=== PATIENT | female | born 1970 | race Caucasian/White ===

== ENCOUNTER 2022-10-23 15:40 | Outpatient (CLI) | payer SELFPAY | END 2022-10-23 15:41 | disposition home or self-care (01) | PROVIDERS: PCP Family Medicine; Referring Provider Family Medicine; Visit Provider Family Medicine | DX: E55.9 Vitamin D deficiency, unspecified (principal); Z13.6 Encounter for screening for cardiovascular disorders | CPT/HCPCS: 80053; 80061; 82306 ==

== ENCOUNTER 2024-04-20 09:20 | Outpatient (CLI) | payer BC, SELFPAY ==
--- OUTSIDE RECORDS SUMMARY | 2024-04-24 05:59 | XMS_ITS | Clinical Summary ---
Author Organization [facility] Address [place], [place] [address] Care Team Providers Care Chemical Dependency Therapist Name Role Phone Pcp, No Primary Care Provider Unavailabl e Allergies No known active allergies Medications Medication Sig Dispensed Refills Start Date End Date Status ibuprofen (ADVIL; MOTRIN) 200 mg tablet Take 1 tablet by mouth 4 times daily if needed. 0 03/11/2019 Active docusate (COLACE) 100 mg capsuleIndications: Chronic constipation Take 1 capsule by mouth at bedtime. 180 capsule 1 03/11/2019 Active baclofen (LIORESAL) 10 mg tabletIndications:M uscle spasm Take 1-2 tablets before bedtime as needed 56 tablet 2 05/11/2019 Active gabapentin (NEURONTIN) 300 mg capsuleIndications: Lumbar radiculopathy Take 1 capsule by mouth at bedtime. 90 capsule 1 05/23/2019 Active acetaminophen (TYLENOL EXTRA STRGTH) 500 mg tablet Take 1 tablet by mouth every 6 hours if needed. Max acetaminophen dose: 4000mg in 24 hrs. 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 Sensorineural hearing loss, bilateral 01/01/2017 Vitamin D deficiency 05/03/2010 Subjective tinnitus 01/25/2010 Immunizations Name Administration Dates Next Due Hepatitis B (Adult) 10/07/2001,04/08/2001,2000 Influenza, IIV3 (Age >=3 years) 08/31/2013,08/02,04/25/2011,05/01/2010 Influenza, IIV4 06/02/2014 MMR 04/08/2001,03/04/2001 Td (Age >=7 Years) 10/07/2001,04/08/2001, 001 Tdap 06/07/2009 Family History Medical History Relation Name Comments Unknown Father Unknown Maternal Grandfather Unknown Maternal Grandmother Good Health Mother Unknown Paternal Grandfather Unknown Paternal Grandmother Relation Name Status Comments Father Maternal Grandfather Maternal Grandmother Mother Paternal Grandfather Paternal Grandmother Social History Tobacco Use Types Packs/Day Years Used Date Smoking Tobacco: Never Smokeless Tobacco: Never Tobacco Cessation:Counseling Given: Yes Alcohol Use Standard Drinks/Week Comments No 0 (1 standard drink = 0.6 oz pur e alcohol) PHQ-2 Answer Date Recorded PHQ-2 Score 0 09/27/2018 Social Connections Answer Date Recorded Frequency of Communication with Friends and Fami ly Not on file 07/27/2021 Financial Resource Strain Answer Date R ecorded Difficulty of Paying Living Expenses Not on file 07/27/2021 Difficulty of Paying Living Expenses Not on file 07/27/2021 Sex and Gender Information Value Date Recorded Sex Assigned at Not on file Gender Identity Not on file Sexual Orientation Not on file Obstetrics History Para Term AB IAB SAB Ectopic Multiple Livin g Live Births 2 2 Date Outcome GA Total Labor Labor/2nd/3rd Weight Sex Type Anes PTL [place] A1 A5 Name Clin Last Filed Vital Signs Vital Sign Reading Time Taken Comments Blood Pressure 110/72 08/23/2019 4:57 PM WARPER CREELER Pulse 79 08/23/2019 4:57 PM WARPER CREELER Temperature 36.9 ??C (98.5 ??F) 08/23/2019 4:57 PM CS T Respiratory Rate 14 06/20/2019 1:19 PM WARPER CREELER Oxygen Saturation 98% 08/23/2019 4:57 PM WARPER CREELER Inhaled Oxygen Concentration - - Weight 83.6 kg (184 lb 3.2 oz) 08/23/2019 4:57 P M WARPER CREELER Height 149.9 cm (4' 11) 08/23/2019 4:57 PM WARPER CREELER Body Mass Index 37.2 08/23/2019 4:57 PM WARPER CREELER Plan of Treatment Health Maintenance Due Date Last Done Comments HIV for age 15-65 01/19/1984 Hepatitis C screening for age 18-79 1987 Mammogram for age 45-75 2014 06/03/2011, 05/14 Zoster (shingles) series for age 50+ (1 of 2) 2019 Tetanus booster 06/07/2019 06/07/2009, 09/24, 04/08/2001, Additional history exists Depression screening for age 12+ 03/11/2020 03/11/2019, 05/13/2018, 05/10/2018, Additional history exists BMI (ht and wt on same day) for age 18+ 08/23/2020 08/23/2019, 08/11/2019, 07/19/2019, Additional history exists Lipids for age 45-75 03/11/2024 03/11/2019, 04/17/2017, 01/04/2016, Additional history exists COVID-19 vaccine series (2023- season) 2024 Influenza for age 50-64 03/27/2024 06/02/20 14, 08/31/2013, 08/02/2012, Additional history exists Pap test for age 21-65 11/22/2027 3, 11/21/2022, 11/09/2020, Additional history exists Colonoscopy through age 75 04/29/2029 04/29/2019, Tdap Completed 06/07/2009 Pneumococcal series for age 6-64 Aged Out No longer eligible based on patient's age to complete this topic Procedures Procedure Name Priority Date/Time Associated Diagnosis Comments HPV HIGH RISK Routine 11/21/2022 1:15 PM CDT COLONOSCOPY 04/29/2019 8:43 AM CDT LIPID PANEL W REFLEX MEASURED LDL Routine 03/11/2019 10:21 AM CDT Screening for cholesterol level XR MAMMO BILAT SCREEN FFDM (IA) Routine 06/03/2011 4:08 PM WARPER CREELER Other screening mammogram from Last 3 Months or Most Recently Relevant to Health Maintenance Results * (ABNORMAL) HPV HIGH RISK (11/21/2022 1:15 PM CDT) TYPE 16 Negative Negative 11/27/2022 1:36 PM CDT [facility] TYPE 18 Negative Negative 11/27/2022 1:36 PM CDT [facility] OTHER HIGH RISK TYPES Positive(A) Negative 11/27/2022 1:36 PM CDT [facility] Other (Cervical/Vagina l) 11/21/2022 1:15 PM CDT 11/25/2022 6:02 PM CDT Narrative [facility] - 11/27/2022 1:36 PM CDT Specimen is positive for the DNA of any one of, or combination of, the following high risk HPV types: 31, 33, 35, 39, 45, 51, 52, 56, 58, 59, 66, 68. HPV types 16 and 18 DNA were undetectable or below the pre-set threshold. ? Methodology: Jamie Shannon 4800 HPV Test Moon Mcarthur MD MICROBIOLOGY [facility] [address] [place] [address], [place] * COLONOSCOPY (04/29/2019 8:43 AM CDT) 04/29/2019 8:43 AM CDT Narrative Transcriptions Jaydon Gonzalez MD - 04/29/2019 9:42 AM CDT Patient Name: Maureen Enriquez Procedure Date: 04/29/2019 Gender: Female Date of : 1970 Admit Type: Outpatient Procedure: Colonoscopy Proceduralist: Jaydon Gonzalez MD , Suzette Davis RN(Nurse) Indications/Pre-Op Diagnosis: Screening for colorectal malignant neoplasm, This is the patient's first colonoscopy Medications: Fentanyl 100 micrograms IV, Midazolam 2 mgIV, The level of sedation administered wasmoderate Procedure Description: The patient had risks, benefits and alternatives explained to andgave informed consent. The patient had a stable cardiopulmonary status and judged an adequate candidate for conscious sedation. The PCF-Q290AL [id number] was passed through the anus and advanced tothe cecum, identified by appendiceal orifice and ileocecal valve. The colonoscopy was performed without difficulty. The patient toleratedthe procedure well. The quality of the bowel preparation was good. The ileocecal valve, appendiceal orifice, and rectum were photographed. Complications: No immediate complications. Estimated Blood Loss & Specimen: Estimated blood loss: none. Specimen collected - None Findings: The perianal and digital rectal examinations were normal. The entire examined colon appeared normal on direct and retroflexion views. Impressions/Post-Op Diagnosis: - The entire examined colon is normal on direct and retroflexionviews. - No specimens collected. Recommendation: - Patient has a contact number available for emergencies. The signsand symptoms of potential delayed complications were discussed with the patient. Return to normal activities tomorrow. Written discharge instructions were provided to the patient. - Resume previous diet. - Continue present medications. - Repeat colonoscopy in 10 years for screening purposes. Moderate Sedation: Moderate (conscious) sedation was administered by the endoscopy nurse and supervised by the endoscopist. The following parameters were monitored: oxygen saturation, heart rate, respiratory rate, blood pressure, adequacy of pulmonary ventilation and reponse to care. [facility] and nursing notes for moderate sedation details. Total physician intraservice time was 12 minutes. Jaydon Gonzalez MD 04/29/2019 9:42:12 AM This report has been signed electronically. Note Initiated On: 04/29/2019 8:43 AM Procedure Code(s): --- Professional --- 93347, Colonoscopy, flexible; diagnostic, including collection of specimen(s) bybrushing or washing, when performed (separateprocedure) Diagnosis Code(s): --- Professional --- Z12.11, Encounter for screening formalignant neoplasm of colon CPT copyright 2018 [employer]. All rights reserved. The codes documented in this report are preliminary and upon wrapping machine helper reviewmay be revised to meet current compliance requirements. Scope In: 9:22:00 AM Scope Withdrawal Time 0 hours 6 minutes 26 seconds Scope Out: 9:32:53 AM Jaydon Gonzalez MD PROCEDURE ORD * (ABNORMAL) LIPID PANEL W REFLEX MEASURED LDL (03/11/2019 10:21 AM CDT) CHOLESTEROL,TOTAL 181 100 - 199 mg/dL 03/11/2019 6:16 PM CDT [facility] TRIGLYCERIDES 186(H) <150 mg/dL 03/11/2019 6:16 PM CDT [facility] HDL CHOLESTEROL 50 >40 mg/dL 9 6:16 PM CDT [facility] NON-HDL CHOLESTEROL 131 <145 mg/dl 03/11/2019 6:16 PM CDT [facility] CHOL/HDL RATIO 3.62 <4.50 03/11/2019 6:16 PM CDT [facility] LDL CHOLESTEROL 94 <=130 mg/dL 03/11/2019 6:16 PM CDT [facility] PROVIDER ORDERED STATUS RANDOM 03/11/2019 6:16 PM CDT [facility] Blood BLOOD SPECIMEN / Unknown Venipuncture / Unknown 03/11/2019 10:21 AM CDT 03/11/2019 10:23 AM CDT Tiarra MATUTE [facility] [address] [place] [address], [place] * XR MAMMO BILAT SCREEN FFDM (06/03/2011 4:08 PM WARPER CREELER) Anatomical Region Laterality Modality BREASTS, Breast Left, Breast Right Bilateral Mammography Impressions 06/04/2011 12:14 PM WARPER CREELER ??There is no radiographic evidence for malignancy. ??Recommend annual mammograms. A lay language report of this examination will be provided to the patient. MAMMOGRAM ASSESSMENT: ??ACR 2 Benign Narrative 06/04/2011 12:14 PM WARPER CREELER XR MAMMO BILAT SCREEN FFDM [G0202.0] CLINICAL HISTORY: ??This is an asymptomatic 41 y.o. patient. INDICATION FOR EXAM: Mammogram Screening. TECHNIQUE: CC & MLO views were obtained. ??This digital study was evaluated with the assistance of Computer-Aided Detection. ?? COMPARISON FILMS: Yes 05/14/10 [facility] FINDINGS: ??Mammographically, the breast tissue has scattered fibroglandular densities (approximately 25% - 50% glandular). ??No suspicious masses or microcalcifications. ??Benign appearing asymmetry within left breast. Procedure Note Yury Reese DO - 06/04/2011 XR MAMMO BILAT SCREEN FFDM [G0202.0] CLINICAL HISTORY: This is an asymptomatic 41 y.o. patient. INDICATION FOR EXAM: Mammogram Screening. TECHNIQUE: CC & MLO views were obtained. This digital study was evaluatedwith the assistance of Computer-Aided Detection. COMPARISON FILMS: Yes 05/14/10 [facility] FINDINGS: Mammographically, the breast tissue has scatteredfibroglandular densities (approximately 25% - 50% glandular). Nosuspicious masses or microcalcifications. Benign appearing asymmetrywithin left breast. IMPRESSION: There is no radiographic evidence for malignancy. Recommendannual mammograms. A lay language report of this examination will be provided to the patient. MAMMOGRAM ASSESSMENT: ACR 2 Benign Rosalind MATUTE MAMMO from Last 3 Months or Most Recently Relevant to Health Maintenance Care Teams Chemical Dependency Therapist Relationship Specialty Start Date End Date Pcp, No . PCP - General 07/28/17
--- OUTSIDE RECORDS SUMMARY | 2024-04-24 06:00 | XMS_ITS | Data Portability ---
Author Organization [facility] Address [address] [place] [address] Lashawn [facility] [id number] Assessment No assessment recorded. Plan of Treatment Reminders Order Date Submit Date Provider Last Modified By Organization Details Last Modified Time Details Appointments None recorded. Lab CBC w/ auto diff 2020 MARIIA Not available 16:31:20 PT/INR 2020 MARIIA Not available 16:31:20 CMP, serum or plasma 2020 MARIIA Not available 16:31:19 vitamin B12 + folate, serum or blood 2020 [email or web address] Not available 14:48:55 iron + total iron-bindin g capacity (TIBC), serum 2020 [email or web address] Not available 14:49:04 Referral None recorded. Procedures None recorded. Surgeries None recorded. Imaging None recorded. Medication Orders Eucerin Original lotion 2020 021 moi Not available 17:49:40 Anusol-HC 2.5 % topical cream with perineal applicator 2020 moi Not available 17:49:28 omeprazole 20 mg capsule,del ayed release 2021 022 [facility], [address] [place] [address], [address], 18:53:11 hydrocortis one 2.5 % topical cream 2021 022 [facility], [facility] [place], [address], 18:53:48 Patient TargetsNo targets recorded. Patient Instructions Encounter Date Encounter Id Patient Instructions Last Modified By Organization Details Last Modified Time 08/29/2020 [id number] Apply ice to the area to help with the discomfort. Avoid Advil or any pain medications other than tylenol until we get the results of your blood tests. [email or web address] Not available 08/29/2020 20:14:26 09/06/2020 [id number] get gloves, put cream on finger, insert in rectal canal moi Not available 09/06/2020 13:17:54 needs mammogram moi Not available 09/06/2020 13:18:07 04/15/2022 [id number] ask for booster when you get your obstetrics/gynecology nurse exam, RTC if bleeding occurs or indigestion worsens moi Not available 04/16/2022 11:46:29 Reason for Referral None Reported. Results Created Date Observation Date Name Description Value Unit Range Abnormal Flag Note LastModifiedBy Organization Detail LastModifiedTime Result Notes None recorded. Problems Name Problem SNOMED Code Status Onset Date Resolution Date Notes Provider Name and Address Organization Details Recorded Time Hearing loss 36898416 Active 2021 Judd Spring MD [address] [place], [address], [facility] 17:48:29 Hemorrhoids 19963495 Active 2021 Judd Spring MD [address] [place], [address], [facility] 17:48:47 Problem Notes None recorded. Medical Equipment None Reported. Allergies No known drug allergies Medications Name Sig Start Date Stop Date Status Note LastModified by Organization Details LastModified Time hydrocortis one 2.5 % topical cream with perineal applicator APPLY A THIN LAYER TO THE AFFECTED AREA(S) TOPICALLY 2-4 TIMES DAILY 04/15 completed Not Available Not Available Not Available omeprazole 20 mg capsule,del ayed release TAKE ONE CAPSULE BY MOUTH EVERY DAY NEEDED active Not Available Not Available No t Available hydrocortis one 2.5 % topical cream APPLY A THIN LAYER TO THE AFFECTED AREA(S) BY TOPICAL ROUTE 2 TIMES PER DAY active Not Available Not Available No t Available polyethylen e glycol 3350 17 gram/dose oral powder MIX 17 GRAMS IN A FULL GLASS OF WATER OR FLUID AND CONSUME ONCE A DAY FOR CHRONIC CONSTIPAT ION active Not Available Not Available No t Available Eucerin Original lotion Apply 1 applicati on twice a day by topical route. 04/15 completed Not Available Not Available Not Available Vitals Date Recorded Body height Body mass index (BMI) Body weight Heart rate Systolic blood pressure Diastolic blood pressure Provider Name and Address Organization Details Last Updated DateTime 152.4 cm 37.3 kg/m2 04350.8 6 g 64 /min 133 mm[Hg] 87 mm[Hg] [facility]ia Callahan [facility] 17:32:32 Social History Question Answer Notes LastModified by Organizat ion Details LastModified Time Tobacco Smoking Status Never Smoker Mariia walton [facility] 04/15/2022 17:30:49 What Is Your Level Of Alcohol Consumption? Occasional [email or web address] Information not available 04/15/2022 Have There Been Any Changes To Your Family Or Social Situation? No Partner moi Information not available 04/15/2022 Do You Feel Safe At Home? Yes [email or web address] Information not available 04/15/2022 Sex: Unknown Functional Status None recorded. Mental Status None recorded. Family History Nothing Reported Notes:father has of unk nown causes, nine siblings Medical History No medical history recorded. Gynecological HistoryNo gynecological history recorded. Obstetrics History GPAL:G 0 P 0 0 0 0 Past Encounters Encounter ID Performer Location Encounter Start Date Encounter Closed Date Diagnosis/Indication Diagnosis SNOMED-CT Code Diagnosis ICD10 Code [id number] MD [facility] [address] [place] [phone] 08/29/2020 20:02:52 08/29/2020 20:21:35 Easy bruising [id number] R58 [id number] MD [facility] [address] [place] [id number] 09/06/2020 11:37:14 09/06/2020 15:01:31 [facility] [id number] Judd Spring MD [facility] [address] [facility] [place] [address] 04/15/2022 17:09:51 04/15/2022 17:50:51 Hemorrhoids 75352004 K64.9 Indigestion 015296919 K3 0 Health Concerns Section Related Observation LastModified by Organization Detai ls LastModified Time None Recorded Concern Status LastModified by Organization Details LastModified Time None Recorded Advance Directives Directive None Recorded Payers Encounter Date Sequence Insurance Name Policy Number Policy Napier Covered Member ID Napier Member ID Guarantor Name 08/29/2020 SLIDING FEE SCHEDULE - DISCOUNT Maureen Mcginnis Enriquez 09/06/2020 SLIDING FEE SCHEDULE - DISCOUNT Maureen Mcginnis Enriquez 04/15/2022 SLIDING FEE SCHEDULE - DISCOUNT Maureen Mcginnis Enriquez Notes Date Note Type Note Provider Name and Address Organization Details Recorded Time 08/29/2020 text/html HPI Notes: This is a 50yo F who presents with bruising on the stomach. She first noted the bruising on Thursday and is causing her pain. yesterday it caused some burning sensation. never had bruising like this before. Not had any trauma to her abdomen. she does not take any medications except tylenol and advil as needed. last took tylenol last week. She last took advil a month ago. she denies any recent weight loss. Sydni Figueroa MD [address] [facility] [place], [address], [facility] [employer] 08/29/2020 20:15:31 09/06/2020 text/html HPI Notes: spots on abd lessening, hemorrhoids, last PAP 2 + years ago, constipated, hemorrhoids Judd Spring MD [address] [facility] [place], [address], [facility] [employer] 09/06/2020 13:20:58 OBGyn Episode No OBEpisode recorded.
== END 2024-04-20 09:21 | disposition home or self-care (01) ==
LOC: NFLDREF 04-24 05:58
PROVIDERS: PCP Family Medicine; Referring Provider Family Medicine; Visit Provider Family Medicine
DX: E78.5 Hyperlipidemia, unspecified (principal)
CPT/HCPCS: 80053; 80061

== ENCOUNTER 2024-04-27 13:29 | Outpatient (CLI) | payer BC, SELFPAY ==
--- OUTSIDE RECORDS SUMMARY | 2024-04-27 13:35 | XMS_ITS | Clinical Summary ---
Author Organization [facility] Address [place], [place] [address] Care Team Providers Care Lab Technician Name Role Phone Pcp, No Primary Care [...] Comments Blood Pressure 110/72 08/23/2019 4:57 PM CRIMINOLOGY TEACHER Pulse 79 08/23/2019 4:57 PM CRIMINOLOGY TEACHER Temperature 36.9 ??C (98.5 ??F) 08/23/2019 4:57 PM CS T Respiratory Rate 14 06/20/2019 1:19 PM CRIMINOLOGY TEACHER Oxygen Saturation 98% 08/23/2019 4:57 PM CRIMINOLOGY TEACHER Inhaled Oxygen Concentration - - Weight 83.6 kg (184 lb 3.2 oz) 08/23/2019 4:57 P M CRIMINOLOGY TEACHER Height 149.9 cm (4' 11) 08/23/2019 4:57 PM CRIMINOLOGY TEACHER Body Mass Index 37.2 08/23/2019 4:57 PM CRIMINOLOGY TEACHER Plan of Treatment Health Maintenance Due Date [...] SCREEN FFDM (IA) Routine 06/03/2011 4:08 PM CRIMINOLOGY TEACHER Other screening mammogram from Last 3 Months or Most Recently Relevant to Health Maintenance Results * (ABNORMAL) HPV HIGH RISK (11/21/2022 1:15 PM CDT) TYPE 16 Negative Negative 11/27/2022 1:36 PM CDT [facility] TYPE 18 Negative Negative 11/27/2022 1:36 PM CDT [facility] OTHER HIGH RISK TYPES Positive(A) Negative 11/27/2022 1:36 PM CDT [facility] Other (Cervical/Vagina l) 11/21/2022 1:15 PM CDT 11/25/2022 6:02 PM CDT Narrative [facility] - 11/27/2022 1:36 PM CDT Specimen is positive for the DNA of any one of, or combination of, the following high risk HPV types: 31, 33, 35, 39, 45, 51, 52, 56, 58, 59, 66, 68. HPV types 16 and 18 DNA were undetectable or below the pre-set threshold. ? Methodology: Jamie Shannon 4800 HPV Test Moon Mcarthur MD MICROBIOLOGY [facility] [address] [place] [address], [place] * COLONOSCOPY (04/29/2019 8:43 AM CDT) [...] adequate candidate for conscious sedation. The PCF-Q290AL [id number] was passed through the anus and advanced [...] reponse to care. [facility] flow[facility] and nursing notes for moderate sedation details. Total physician intraservice time was 12 minutes. Jaydon Gonzalez MD 04/29/2019 9:42:12 AM This report has been signed electronically. Note Initiated On: 04/29/2019 8:43 AM Procedure Code(s): --- Professional --- 02310, Colonoscopy, flexible; diagnostic, including collection of specimen(s) bybrushing or washing, when performed (separateprocedure) Diagnosis Code(s): --- Professional --- Z12.11, Encounter for screening formalignant neoplasm of colon CPT copyright 2018 [employer]. All rights reserved. The codes documented in this report are preliminary and upon medical biller coder reviewmay be revised to meet current compliance requirements. Scope In: 9:22:00 AM Scope Withdrawal Time 0 hours 6 minutes 26 seconds Scope Out: 9:32:53 AM Jaydon Gonzalez MD PROCEDURE ORD * (ABNORMAL) LIPID PANEL W REFLEX MEASURED LDL (03/11/2019 10:21 AM CDT) CHOLESTEROL,TOTAL 181 100 - 199 mg/dL 03/11/2019 6:16 PM CDT [facility] TRIGLYCERIDES 186(H) <150 mg/dL 03/11/2019 6:16 PM CDT [facility] HDL CHOLESTEROL 50 >40 mg/dL 9 6:16 PM CDT [facility] NON-HDL CHOLESTEROL 131 <145 mg/dl 03/11/2019 6:16 PM CDT [facility] CHOL/HDL RATIO 3.62 <4.50 03/11/2019 6:16 PM CDT [facility] LDL CHOLESTEROL 94 <=130 mg/dL 03/11/2019 6:16 PM CDT [facility] PROVIDER ORDERED STATUS RANDOM 03/11/2019 6:16 PM CDT [facility] Blood BLOOD SPECIMEN / Unknown Venipuncture / Unknown 03/11/2019 10:21 AM CDT 03/11/2019 10:23 AM CDT Tiarra [facility] [address] [place] [address], [place] * XR MAMMO BILAT SCREEN FFDM (06/03/2011 4:08 PM CRIMINOLOGY TEACHER) Anatomical Region Laterality Modality BREASTS, Breast Left, Breast Right Bilateral Mammography Impressions 06/04/2011 12:14 PM CRIMINOLOGY TEACHER ??There is no radiographic evidence for malignancy. ??Recommend annual mammograms. A lay language report of this examination will be provided to the patient. MAMMOGRAM ASSESSMENT: ??ACR 2 Benign Narrative 06/04/2011 12:14 PM CRIMINOLOGY TEACHER XR MAMMO BILAT SCREEN FFDM [G0202.0] CLINICAL HISTORY: ??This is an asymptomatic 41 y.o. patient. INDICATION FOR EXAM: Mammogram Screening. TECHNIQUE: CC & MLO views were obtained. ??This digital study was evaluated with the assistance of Computer-Aided Detection. ?? COMPARISON FILMS: Yes 05/14/10 [facility] FINDINGS: ??Mammographically, the breast tissue has scattered [...] of Computer-Aided Detection. COMPARISON FILMS: Yes 05/14/10 [facility] FINDINGS: Mammographically, the breast tissue has scatteredfibroglandular [...] Recently Relevant to Health Maintenance Care Teams Lab Technician Relationship Specialty Start Date End Date Pcp, No . PCP - General 07/28/17
[2024-04-30 09:48] LABS: HPV Source Cervix; HPV, High Risk by TMA Detected
[2024-05-01 01:24] LABS: HPV Genotype 16 by TMA Not Detected; HPV Genotype 18/45 by TMA Not Detected; HPV Reflex Billing Y; HPVG Source Cervix
== END 2024-04-27 13:30 | disposition home or self-care (01) ==
PROVIDERS: PCP Family Medicine; Visit Provider Family Medicine
DX: Z00.00 Encounter for general adult medical examination without abnormal findings (principal); Z12.4 Encounter for screening for malignant neoplasm of cervix
CPT/HCPCS: 87624; 87625; 88141; 88142

== ENCOUNTER 2025-04-13 08:11 | Outpatient (CLI) | payer OTHER, SELFPAY ==
--- NOTE | 2025-04-13 08:15 | MR_ITS ---
[address] [address] Phone:?[phone] Fax:?[phone] Referring Physician Information: Yury Brady M.D. [id number] [address] Phone:?[phone] Fax:?[phone] Patient:?Maureen Mcginnis Mina D.O.B:?1970 Sex:?Female Phone:? [facility] MRN:?[id number] Exam Date:?04/13/2025 EXAM: MRI of the RIGHT SHOULDER without contrast CLINICAL: Evaluate for rotator cuff tear. COMPARISONS: X-rays 02/08/2025. TECHNICAL: Multiplanar multisequence MRI of the right shoulder was obtained. SEDATION: None. CONTRAST: None. FINDINGS: Rotator cuff: Supraspinatus/Infraspinatus: There is high-grade partial interstitial insertional tearing of the distal supraspinatus tendon measuring approximately 6 mm in AP dimension as seen on coronal series 5 image 12-13 and sagittal series 9 image 5. There is mild partial interstitial tearing of the proximal infraspinatus tendon extending into the myotendinous junction as seen on coronal series 5 images 16-18 and sagittal series 9 images 8-13. There is moderate tendinosis of the distal supraspinatus and infraspinatus tendons. No significant fatty atrophy of the muscles. Teres minor: No tendinosis, tear or atrophy. Subscapularis: There is mild tendinosis and mild partial interstitial insertional tearing of the distal tendon. There is mild partial interstitial tearing extending into the more proximal tendon with small adjacent ganglion cyst formation on sagittal series 9 images 15-19. No significant fatty atrophy of the muscle. Bursae: Subacromial-subdeltoid: Mild bursal fluid. Subcoracoid: Moderate bursal fluid. Coracoacromial arch: Acromion morphology: Type II. No os acromiale. Acromiohumeral space: Within normal limits. Coracohumeral space: Within normal limits. Biceps tendon, long head: Mild tendinosis of the intra-articular tendon without evidence of significant tendon tear or displacement. Glenohumeral joint: Physiologic volume of joint fluid. Articular cartilage: No significant chondral loss. Capsule: No evidence of capsular thickening or injury. Labrum: There is ill-defined fraying/tearing involving the superior labrum extending posterior to the biceps anchor as seen on coronal series 5 image 15-18. No additional discrete labral tear identified on this nonarthrogram exam. No perilabral cyst identified. Bones: There is mild reactive marrow edema involving the greater tuberosity of the proximal humerus adjacent to the distal supraspinatus tendon attachment. No evidence of acute fracture. Acromioclavicular joint: Mild changes of arthrosis. No AC joint injury/widening. IMPRESSION: 1. Moderate tendinosis of the distal supraspinatus and infraspinatus tendons with high-grade partial interstitial insertional tearing of the distal supraspinatus tendon. Mild partial interstitial tearing of the proximal infraspinatus tendon extending into the myotendinous junction. 2. Mild tendinosis and mild partial tearing of the subscapularis tendon. 3. Mild tendinosis of the intra-articular long head biceps tendon. 4. Ill-defined fraying/tearing involving the superior labrum. 5. Mild AC joint arthrosis. 6. Moderate subcoracoid bursitis with mild fluid within the subacromial- subdeltoid bursa. JCZ Electronically signed on 04/13/2025 10:40:00 AM by Harpal Richard D.O.
== END 2025-04-13 08:12 | disposition home or self-care (01) ==
LOC: MRI 08:13
PROVIDERS: PCP Family Medicine; Visit Provider Orthopaedic Surgery
DX: M25.511 Pain in right shoulder (principal); M75.101 Unspecified rotator cuff tear or rupture of right shoulder, not specified as traumatic; S46.911A Strain of unspecified muscle, fascia and tendon at shoulder and upper arm level, right arm, initial encounter; S43.431A Superior glenoid labrum lesion of right shoulder, initial encounter; M19.011 Primary osteoarthritis, right shoulder; M75.51 Bursitis of right shoulder; S49.91XA Unspecified injury of right shoulder and upper arm, initial encounter
CPT/HCPCS: 73221; T1013

== ENCOUNTER 2025-06-06 13:12 | Outpatient (CLI) | payer BC, SELFPAY ==
[2025-06-08 03:57] LABS: HPV Source Cervical/Vag
[2025-06-08 16:49] LABS: HPV Genotype 16 by TMA Not Detected; HPV Genotype 18/45 by TMA Not Detected
[2025-06-09 09:48] LABS: Pap Test Digital Imaging Done
== END 2025-06-06 13:13 | disposition home or self-care (01) ==
PROVIDERS: PCP Family Medicine; Visit Provider Family Medicine
DX: Z12.4 Encounter for screening for malignant neoplasm of cervix (principal); R87.810 Cervical high risk human papillomavirus (HPV) DNA test positive; E78.2 Mixed hyperlipidemia; K59.09 Other constipation; R53.83 Other fatigue; E66.9 Obesity, unspecified; Z68.39 Body mass index [BMI] 39.0-39.9, adult
CPT/HCPCS: 80053; 80061; 87624; 87625; 88141; 88142; 88175